=== PATIENT | female | born 1980 | race Caucasian/White ===

== ENCOUNTER → 2016-10-21 | Outpatient (CLI) | payer BC | LOC: RAD 11:02 | DX: R07.89 Other chest pain (principal); R06.00 Dyspnea, unspecified ==

== ENCOUNTER → 2016-10-22 | Outpatient (CLI) | payer BC | LOC: RAD 08:45 | DX: R07.89 Other chest pain (principal); R06.02 Shortness of breath ==

== ENCOUNTER → 2017-01-06 | Outpatient (CLI) | payer BC | LOC: LAB 10:35 | DX: E03.4 Atrophy of thyroid (acquired) (principal) ==

== ENCOUNTER → 2017-03-17 | Outpatient (CLI) | payer BC | LOC: LAB 14:17 | DX: E03.4 Atrophy of thyroid (acquired) (principal) ==

== ENCOUNTER → 2017-06-15 | Outpatient (CLI) | payer BC | LOC: LAB 12:01 | DX: Z32.00 Encounter for pregnancy test, result unknown (principal) ==

== ENCOUNTER 2019-03-18 11:57 | Emergency (ER) | payer BC ==
[2019-03-18] MEDS ORDERED: TIROSINT137 MC1 PO (12:07)
[2019-03-18 13:10] LABS: EOS # 0.1 (0.04-0.40); EOS % 1.3 % (1.0-5.0); HEMATOCRIT 37.5 % (37.0-47.0); HEMOGLOBIN 12.9 g/dL (12.5-16.0); MEAN CELL VOLUME 81 fl (78-100); MEAN CORPUSCULAR HEMOGLOBIN 28 pg (27-31); MEAN CORPUSCULAR HGB CONC 34 g/dL (33-37); MEAN PLATELET VOLUME 9.2 fl (7.4-10.4); MONO # 0.3 (0.20-0.80); NEU # 3.1 (1.40-6.50); PLATELET COUNT 261 K/mm3 (130-400); RED BLOOD COUNT 4.65 M/mm3 (4.10-5.30); RED CELL DISTRIBUTION WIDTH 13.4 % (11.5-14.5); WHITE BLOOD COUNT 5.6 K/mm3 (4.8-10.8)
[2019-03-18 13:18] LABS: ALBUMIN 4.7 g/dL (3.5-5.0); POTASSIUM 3.6 mmol/L (3.5-5.1)
[2019-03-18 13:20] LABS: CALCIUM 9.6 mg/dL (8.3-10.5)
[2019-03-18 13:21] LABS: TOTAL PROTEIN 7.8 g/dL (6.4-8.3)
[2019-03-18 13:33] LABS: D-DIMER 0.22 mg/L FEU (0.15-0.50)
[2019-03-18 13:45] LABS: TOTAL BILIRUBIN 0.5 mg/dL (0.2-1.2)
[2019-03-18 14:18] LABS: URINE APPEARANCE CLEAR; URINE COLOR LT YELLOW
[2019-03-18 14:23] LABS: PH-URINE 7.5 (5.0 - 8.0); URINE BILIRUBIN NEGATIVE (NEGATIVE); URINE BLOOD NEGATIVE (NEGATIVE); URINE GLUCOSE NEGATIVE (NEGATIVE); URINE KETONE NEGATIVE (NEGATIVE); URINE LEUKOCYTE ESTERASE NEGATIVE (NEGATIVE); URINE NITRATE NEGATIVE (NEGATIVE); URINE PROTEIN(semi-quant) NEGATIVE (NEGATIVE); URINE UROBILINOGEN NORMAL (NORMAL); URINE WBC 0-1 /hpf (0-3)
[2019-03-18 15:41] VITALS: BP 119/63
== END 2019-03-18 15:43 | disposition home or self-care (01) ==
LOC: ED 11:57
PROVIDERS: Family Medicine
DX: F41.9 Anxiety disorder, unspecified (principal); M79.601 Pain in right arm; E03.9 Hypothyroidism, unspecified; Z90.49 Acquired absence of other specified parts of digestive tract

== ENCOUNTER → 2020-03-08 | Outpatient (CLI) | payer MEDICAID ==
[~2020-03-08] MED LIST: TIROSINT137 MC1 PO
== END ==
LOC: LAB 14:28
DX: J02.9 Acute pharyngitis, unspecified (principal); R51 Headache; R53.83 Other fatigue; R09.89 Other specified symptoms and signs involving the circulatory and respiratory systems; Z20.828 Contact with and (suspected) exposure to other viral communicable diseases

== ENCOUNTER → 2020-06-27 | Outpatient (CLI) | payer MEDICAID ==
[2020-06-27 16:25] LABS: EOS # 0.1 (0.04-0.40); EOS % 0.7 % (1.0-5.0); HEMATOCRIT 32.4 % (37.0-47.0); HEMOGLOBIN 10.9 g/dL (12.5-16.0); LYMPH# 1.4 (1.50-4.00); MEAN CELL VOLUME 85 fl (78-100); MEAN CORPUSCULAR HEMOGLOBIN 29 pg (27-31); MEAN CORPUSCULAR HGB CONC 34 g/dL (33-37); MONO # 0.6 (0.20-0.80); NEU # 4.8 (1.40-6.50); PLATELET COUNT 219 K/mm3 (130-400); RED BLOOD COUNT 3.82 M/mm3 (4.10-5.30); RED CELL DISTRIBUTION WIDTH 13.6 % (11.5-14.5); WHITE BLOOD COUNT 6.9 K/mm3 (4.8-10.8)
[2020-06-27 16:34] LABS: ALBUMIN 3.6 g/dL (3.5-5.0); POTASSIUM 3.5 mmol/L (3.5-5.1)
[2020-06-27 16:35] LABS: CALCIUM 8.4 mg/dL (8.3-10.5)
[2020-06-27 16:37] LABS: TOTAL PROTEIN 6.2 g/dL (6.4-8.3)
[2020-06-27 16:38] LABS: TOTAL BILIRUBIN 0.2 mg/dL (0.2-1.2)
== END ==
LOC: LAB 15:58
PROVIDERS: Physician Assistant
DX: R60.0 Localized edema (principal); E03.9 Hypothyroidism, unspecified; D64.9 Anemia, unspecified; R00.2 Palpitations; R00.0 Tachycardia, unspecified; R06.00 Dyspnea, unspecified; R73.09 Other abnormal glucose

== ENCOUNTER → 2020-10-31 | Outpatient (CLI) | payer MEDICAID | LOC: RAD 15:22 | DX: S99.921A Unspecified injury of right foot, initial encounter (principal) ==

== ENCOUNTER → 2020-11-13 | Outpatient (CLI) | payer MEDICAID ==
[2020-11-13 17:29] LABS: ALBUMIN 4.4 g/dL (3.5-5.0)
[2020-11-13 17:30] LABS: CALCIUM 9.3 mg/dL (8.3-10.5)
[2020-11-13 17:31] LABS: HEMOGLOBIN 11.5 g/dL (12.5-16.0); RED BLOOD COUNT 4.16 M/mm3 (4.10-5.30); TOTAL PROTEIN 7.5 g/dL (6.4-8.3); WHITE BLOOD COUNT 4.1 K/mm3 (4.8-10.8)
[2020-11-13 17:32] LABS: EOS # 0.1 (0.04-0.40); EOS % 1.5 % (1.0-5.0); HEMATOCRIT 33.9 % (37.0-47.0); LYMPH# 2.1 (1.50-4.00); MEAN CELL VOLUME 82 fl (78-100); MEAN CORPUSCULAR HEMOGLOBIN 28 pg (27-31); MEAN CORPUSCULAR HGB CONC 34 g/dL (33-37); MEAN PLATELET VOLUME 8.9 fl (7.4-10.4); MONO # 0.3 (0.20-0.80); NEU # 1.6 (1.40-6.50); PLATELET COUNT 198 K/mm3 (130-400); RED CELL DISTRIBUTION WIDTH 12.2 % (11.5-14.5)
[2020-11-13 17:33] LABS: TOTAL BILIRUBIN 0.3 mg/dL (0.2-1.2)
[2020-11-15 10:43] LABS: ANA SCREEN with REFLEX Positive (Negative)
== END ==
LOC: LAB 17:05
PROVIDERS: Physician Assistant
DX: R60.0 Localized edema (principal); R21 Rash and other nonspecific skin eruption; R50.81 Fever presenting with conditions classified elsewhere

== ENCOUNTER → 2020-11-28 | Outpatient (CLI) | payer MEDICAID | LOC: LAB 17:31 | DX: R76.8 Other specified abnormal immunological findings in serum (principal) ==

== ENCOUNTER → 2020-12-10 | Outpatient (CLI) | payer MEDICAID | LOC: LAB 10:13 | DX: D68.61 Antiphospholipid syndrome (principal); I82.441 Acute embolism and thrombosis of right tibial vein ==

== ENCOUNTER → 2021-02-14 | Outpatient (CLI) | payer MEDICAID ==
[2021-02-14 17:08] LABS: PROTHROMBIN TIME 9.9 SECONDS (9.0-12.0)
== END ==
LOC: LAB 14:18
PROVIDERS: Physician Assistant
DX: I82.409 Acute embolism and thrombosis of unspecified deep veins of unspecified lower extremity (principal)

== ENCOUNTER → 2021-02-17 | Outpatient (CLI) | payer MEDICAID ==
[2021-02-17 15:08] LABS: BASO # 0.02 (0.02-0.10); EOS # 0.06 (0.04-0.40); EOS % 0.9 % (1.0-5.0); HEMATOCRIT 40.1 % (37.0-47.0); HEMOGLOBIN 13.9 g/dL (12.5-16.0); LYMPH# 2.19 (1.50-4.00); MEAN CELL VOLUME 80 fl (78-100); MEAN CORPUSCULAR HEMOGLOBIN 28 pg (27-31); MEAN CORPUSCULAR HGB CONC 35 g/dL (33-37); MEAN PLATELET VOLUME 8.9 fl (7.4-10.4); MONO # 0.51 (0.20-0.80); NEU # 4.02 (1.40-6.50); PLATELET COUNT 256 K/mm3 (130-400); RED BLOOD COUNT 5.02 M/mm3 (4.10-5.30); RED CELL DISTRIBUTION WIDTH 12.5 % (11.5-14.5); WHITE BLOOD COUNT 6.8 K/mm3 (4.8-10.8)
[2021-02-17 15:25] LABS: ALBUMIN 5.1 g/dL (3.5-5.0); POTASSIUM 4.1 mmol/L (3.5-5.1)
[2021-02-17 15:26] LABS: CALCIUM 9.6 mg/dL (8.3-10.5)
[2021-02-17 15:27] LABS: TOTAL PROTEIN 8.4 g/dL (6.4-8.3)
[2021-02-17 15:29] LABS: TOTAL BILIRUBIN 0.6 mg/dL (0.2-1.2)
== END ==
LOC: LAB 14:57
PROVIDERS: Nurse Practitioner
DX: M25.571 Pain in right ankle and joints of right foot (principal)

== ENCOUNTER → 2021-02-24 | Outpatient (CLI) | payer MEDICAID ==
[2021-02-24 11:51] LABS: PROTHROMBIN TIME 10.3 SECONDS (9.0-12.0)
== END ==
LOC: LAB 11:18
PROVIDERS: Physician Assistant
DX: I82.409 Acute embolism and thrombosis of unspecified deep veins of unspecified lower extremity (principal)

== ENCOUNTER → 2021-03-03 | Outpatient (CLI) | payer MEDICAID | LOC: LAB 08:18 | PROVIDERS: Physician Assistant | DX: I82.409 Acute embolism and thrombosis of unspecified deep veins of unspecified lower extremity (principal) ==

== ENCOUNTER → 2021-03-10 | Outpatient (CLI) | payer MEDICAID ==
[2021-03-10 15:01] LABS: PROTHROMBIN TIME 10.3 SECONDS (9.0-12.0)
== END ==
LOC: LAB 14:33
PROVIDERS: Physician Assistant
DX: I82.409 Acute embolism and thrombosis of unspecified deep veins of unspecified lower extremity (principal)

== ENCOUNTER → 2021-03-19 | Outpatient (CLI) | payer MEDICAID ==
[2021-03-19 08:53] LABS: PROTHROMBIN TIME 13.8 SECONDS (9.0-12.0)
== END ==
LOC: LAB 08:06
PROVIDERS: Physician Assistant
DX: D68.61 Antiphospholipid syndrome (principal); I82.409 Acute embolism and thrombosis of unspecified deep veins of unspecified lower extremity

== ENCOUNTER → 2021-03-21 | Outpatient (CLI) | payer MEDICAID ==
[2021-03-21 15:41] LABS: PROTHROMBIN TIME 17.7 SECONDS (9.0-12.0)
== END ==
LOC: LAB 15:03
PROVIDERS: Physician Assistant
DX: D68.61 Antiphospholipid syndrome (principal)

== ENCOUNTER → 2021-03-25 | Outpatient (CLI) | payer MEDICAID ==
[2021-03-25 14:16] LABS: PROTHROMBIN TIME 18.1 SECONDS (9.0-12.0)
== END ==
LOC: LAB 13:53
PROVIDERS: Physician Assistant
DX: D68.61 Antiphospholipid syndrome (principal)

== ENCOUNTER → 2021-03-29 | Outpatient (CLI) | payer MEDICAID ==
[2021-03-29 11:04] LABS: PROTHROMBIN TIME 21.9 SECONDS (9.0-12.0)
== END ==
LOC: LAB 09:27
PROVIDERS: Physician Assistant
DX: D68.61 Antiphospholipid syndrome (principal)

== ENCOUNTER → 2021-04-07 | Outpatient (CLI) | payer MEDICAID ==
[2021-04-07 17:36] LABS: PROTHROMBIN TIME 44.5 SECONDS (9.0-12.0)
== END ==
LOC: LAB 16:30
PROVIDERS: Physician Assistant
DX: D68.61 Antiphospholipid syndrome (principal)

== ENCOUNTER → 2021-04-14 | Outpatient (CLI) | payer MEDICAID ==
[2021-04-14 18:09] LABS: PROTHROMBIN TIME 21.3 SECONDS (9.0-12.0)
== END ==
LOC: LAB 17:44
PROVIDERS: Physician Assistant
DX: D68.61 Antiphospholipid syndrome (principal)

== ENCOUNTER → 2021-04-29 | Outpatient (CLI) | payer MEDICAID ==
[2021-04-29 12:44] LABS: PROTHROMBIN TIME 21.4 SECONDS (9.0-12.0)
== END ==
LOC: LAB 12:05
PROVIDERS: Physician Assistant
DX: D68.61 Antiphospholipid syndrome (principal)

== ENCOUNTER → 2021-06-02 | Outpatient (CLI) | payer MEDICAID ==
[2021-06-02 11:02] LABS: PROTHROMBIN TIME 34.5 SECONDS (9.0-12.0)
== END ==
LOC: LAB 10:22
PROVIDERS: Physician Assistant
DX: D68.61 Antiphospholipid syndrome (principal)

== ENCOUNTER → 2021-07-09 | Outpatient (CLI) | payer MEDICAID ==
[2021-07-09 12:25] LABS: URINE WBC 0 /hpf (0-3)
[2021-07-09 12:27] LABS: BASO # 0.02 K/mm3 (0.02-0.10); EOS # 0.08 K/mm3 (0.04-0.40); EOS % 1.6 % (1.0-5.0); HEMATOCRIT 39.7 % (37.0-47.0); HEMOGLOBIN 13.4 g/dL (12.5-16.0); LYMPH# 1.87 K/mm3 (1.50-4.00); MEAN CELL VOLUME 81 fl (78-100); MEAN CORPUSCULAR HEMOGLOBIN 27 pg (27-31); MEAN CORPUSCULAR HGB CONC 34 g/dL (33-37); MONO # 0.36 K/mm3 (0.20-0.80); NEU # 2.78 K/mm3 (1.40-6.50); PLATELET COUNT 236 K/mm3 (130-400); RED BLOOD COUNT 4.89 M/mm3 (4.10-5.30); RED CELL DISTRIBUTION WIDTH 12.8 % (11.5-14.5); WHITE BLOOD COUNT 5.1 K/mm3 (4.8-10.8)
[2021-07-09 12:37] LABS: ALBUMIN 4.7 g/dL (3.5-5.0)
[2021-07-09 12:38] LABS: CALCIUM 9.7 mg/dL (8.3-10.5)
[2021-07-09 12:39] LABS: TOTAL PROTEIN 7.7 g/dL (6.4-8.3)
[2021-07-09 12:41] LABS: TOTAL BILIRUBIN 0.3 mg/dL (0.2-1.2)
[2021-07-09 14:50] LABS: PH-URINE 7.5 (5.0 - 8.0); URINE APPEARANCE CLEAR; URINE COLOR YELLOW; URINE GLUCOSE NEGATIVE (NEGATIVE); URINE PROTEIN(semi-quant) NEGATIVE (NEGATIVE)
[2021-07-09 14:51] LABS: URINE BILIRUBIN NEGATIVE (NEGATIVE); URINE BLOOD NEGATIVE (NEGATIVE); URINE KETONE NEGATIVE (NEGATIVE); URINE LEUKOCYTE ESTERASE NEGATIVE (NEGATIVE); URINE NITRATE NEGATIVE (NEGATIVE); URINE UROBILINOGEN NORMAL (NORMAL)
== END ==
LOC: LAB 11:58 → RAD 11:58
PROVIDERS: Physician Assistant
DX: Z01.818 Encounter for other preprocedural examination (principal); E03.9 Hypothyroidism, unspecified

== ENCOUNTER → 2021-07-21 | Outpatient (CLI) | payer MEDICAID ==
[2021-07-21 14:53] LABS: PROTHROMBIN TIME 10.4 SECONDS (9.0-12.0)
== END ==
LOC: LAB 14:23
PROVIDERS: Physician Assistant
DX: D68.61 Antiphospholipid syndrome (principal)

== ENCOUNTER → 2021-08-15 | Outpatient (CLI) | payer MEDICAID ==
[2021-08-15 11:42] LABS: PROTHROMBIN TIME 22.5 SECONDS (9.0-12.0)
== END ==
LOC: LAB 11:19
PROVIDERS: Physician Assistant
DX: D68.61 Antiphospholipid syndrome (principal)

== ENCOUNTER → 2021-08-25 | Outpatient (CLI) | payer MEDICAID ==
[2021-08-25 10:18] LABS: PROTHROMBIN TIME 21.5 SECONDS (9.0-12.0)
== END ==
LOC: LAB 09:55
PROVIDERS: Physician Assistant
DX: D68.61 Antiphospholipid syndrome (principal)

== ENCOUNTER → 2021-09-17 | Outpatient (CLI) | payer MEDICAID ==
[2021-09-17 13:22] LABS: BASO # 0.02 K/mm3 (0.02-0.10); EOS # 0.08 K/mm3 (0.04-0.40); EOS % 1.3 % (1.0-5.0); HEMATOCRIT 39.8 % (37.0-47.0); HEMOGLOBIN 13.4 g/dL (12.5-16.0); LYMPH# 2.11 K/mm3 (1.50-4.00); MEAN CELL VOLUME 82 fl (78-100); MEAN CORPUSCULAR HEMOGLOBIN 28 pg (27-31); MEAN CORPUSCULAR HGB CONC 34 g/dL (33-37); MEAN PLATELET VOLUME 8.8 fl (7.4-10.4); MONO # 0.51 K/mm3 (0.20-0.80); NEU # 3.25 K/mm3 (1.40-6.50); PLATELET COUNT 259 K/mm3 (130-400); RED BLOOD COUNT 4.86 M/mm3 (4.10-5.30); RED CELL DISTRIBUTION WIDTH 12.9 % (11.5-14.5)
[2021-09-17 13:31] LABS: ALBUMIN 4.8 g/dL (3.5-5.0); POTASSIUM 4.1 mmol/L (3.5-5.1)
[2021-09-17 13:33] LABS: CALCIUM 9.4 mg/dL (8.3-10.5)
[2021-09-17 13:34] LABS: TOTAL PROTEIN 8.5 g/dL (6.4-8.3)
[2021-09-17 13:36] LABS: TOTAL BILIRUBIN 0.4 mg/dL (0.2-1.2)
== END ==
LOC: LAB 13:11
PROVIDERS: Internal Medicine
DX: I82.441 Acute embolism and thrombosis of right tibial vein (principal); D68.61 Antiphospholipid syndrome

== ENCOUNTER → 2021-10-08 | Outpatient (CLI) | payer MEDICAID ==
[2021-10-08 16:37] LABS: PROTHROMBIN TIME 20.9 SECONDS (9.0-12.0)
== END ==
LOC: LAB 15:52
PROVIDERS: Physician Assistant
DX: D68.61 Antiphospholipid syndrome (principal)

== ENCOUNTER → 2022-01-14 | Outpatient (CLI) | payer MEDICAID ==
[2022-01-14 17:16] LABS: PROTHROMBIN TIME 10.4 SECONDS (9.0-12.0)
== END ==
LOC: LAB 16:46
PROVIDERS: Physician Assistant
DX: D68.61 Antiphospholipid syndrome (principal)

== ENCOUNTER → 2022-02-05 | Outpatient (CLI) | payer MEDICAID ==
[2022-02-05 14:45] LABS: PROTHROMBIN TIME 17.2 SECONDS (9.0-12.0)
== END ==
LOC: LAB 14:05
PROVIDERS: Physician Assistant
DX: D68.61 Antiphospholipid syndrome (principal)

== ENCOUNTER → 2022-02-24 | Outpatient (CLI) | payer MEDICAID ==
[2022-02-24 15:27] LABS: PROTHROMBIN TIME 16.6 SECONDS (9.0-12.0)
== END ==
LOC: LAB 14:59
PROVIDERS: Physician Assistant
DX: D68.61 Antiphospholipid syndrome (principal)

== ENCOUNTER → 2022-03-30 | Outpatient (CLI) | payer MEDICAID ==
[2022-03-30 18:18] LABS: BASO # 0.04 K/mm3 (0.02-0.10); EOS # 0.06 K/mm3 (0.04-0.40); EOS % 1.2 % (1.0-5.0); HEMATOCRIT 36.8 % (37.0-47.0); HEMOGLOBIN 12.8 g/dL (12.5-16.0); LYMPH# 1.81 K/mm3 (1.50-4.00); MEAN CELL VOLUME 81 fl (78-100); MEAN CORPUSCULAR HEMOGLOBIN 28 pg (27-31); MEAN CORPUSCULAR HGB CONC 35 g/dL (33-37); MONO # 0.39 K/mm3 (0.20-0.80); NEU # 2.89 K/mm3 (1.40-6.50); PLATELET COUNT 224 K/mm3 (130-400); RED BLOOD COUNT 4.56 M/mm3 (4.10-5.30); RED CELL DISTRIBUTION WIDTH 12.9 % (11.5-14.5); WHITE BLOOD COUNT 5.2 K/mm3 (4.8-10.8)
[2022-03-30 19:05] LABS: PROTHROMBIN TIME 36.3 SECONDS (9.0-12.0)
== END ==
LOC: LAB 18:05
PROVIDERS: Physician Assistant
DX: D68.61 Antiphospholipid syndrome (principal)

== ENCOUNTER → 2022-07-08 | Outpatient (CLI) | payer MEDICAID ==
[2022-07-08 13:55] LABS: PROTHROMBIN TIME 48.5 SECONDS (9.0-12.0)
== END ==
LOC: LAB 13:00
PROVIDERS: Physician Assistant
DX: D69.6 Thrombocytopenia, unspecified (principal)

== ENCOUNTER → 2022-07-23 | Outpatient (CLI) | payer MEDICAID ==
[2022-07-23 12:54] LABS: PROTHROMBIN TIME 22.5 SECONDS (9.0-12.0)
== END ==
LOC: LAB 12:21
PROVIDERS: Physician Assistant
DX: D68.61 Antiphospholipid syndrome (principal)

== ENCOUNTER → 2023-07-08 | Outpatient (CLI) | payer OTHER ==
[~2023-07-08] MED LIST changes: +PLAQUENIL200 MG; +WARFARIN SODIUM6 MG
[2023-07-08 17:02] LABS: PROTHROMBIN TIME 14.9 SECONDS (9.0-12.0)
== END ==
LOC: LAB 16:34
PROVIDERS: Physician Assistant
DX: D68.61 Antiphospholipid syndrome (principal)

== ENCOUNTER → 2023-07-12 | Outpatient (CLI) | payer OTHER | LOC: VAS 15:23 → RAD 15:23 | DX: M79.604 Pain in right leg (principal) ==

== ENCOUNTER → 2023-09-29 | Outpatient (CLI) | payer OTHER ==
[2023-09-29 09:33] LABS: BASO # 0.02 K/mm3 (0.02-0.10); EOS # 0.04 K/mm3 (0.04-0.40); EOS % 0.9 % (1.0-5.0); HEMATOCRIT 39.7 % (37.0-47.0); HEMOGLOBIN 13.7 g/dL (12.5-16.0); MEAN CELL VOLUME 82 fl (78-100); MEAN CORPUSCULAR HEMOGLOBIN 28 pg (27-31); MEAN CORPUSCULAR HGB CONC 35 g/dL (33-37); MEAN PLATELET VOLUME 8.9 fl (7.4-10.4); MONO # 0.36 K/mm3 (0.20-0.80); NEU # 2.37 K/mm3 (1.40-6.50); PLATELET COUNT 233 K/mm3 (130-400); RED BLOOD COUNT 4.83 M/mm3 (4.10-5.30); RED CELL DISTRIBUTION WIDTH 12.7 % (11.5-14.5); WHITE BLOOD COUNT 4.3 K/mm3 (4.8-10.8)
[2023-09-29 09:40] LABS: ALBUMIN 5.1 g/dL (3.5-5.0)
[2023-09-29 09:41] LABS: CALCIUM 9.7 mg/dL (8.3-10.5)
[2023-09-29 09:42] LABS: TOTAL PROTEIN 7.8 g/dL (6.4-8.3)
[2023-09-29 09:44] LABS: TOTAL BILIRUBIN 0.6 mg/dL (0.2-1.2)
[2023-09-29 09:55] LABS: PROTHROMBIN TIME 16.7 SECONDS (9.0-12.0)
== END ==
LOC: LAB 09:15
PROVIDERS: Physician Assistant
DX: D68.61 Antiphospholipid syndrome (principal)

== ENCOUNTER → 2024-05-03 | Outpatient (CLI) | payer OTHER ==
[2024-05-03 13:41] LABS: BASO # 0.02 K/mm3 (0.02-0.10); EOS # 0.04 K/mm3 (0.04-0.40); EOS % 0.9 % (1.0-5.0); HEMATOCRIT 39.8 % (37.0-47.0); HEMOGLOBIN 13.4 g/dL (12.5-16.0); LYMPH# 1.35 K/mm3 (1.50-4.00); MEAN CELL VOLUME 82 fl (78-100); MEAN CORPUSCULAR HEMOGLOBIN 28 pg (27-31); MEAN CORPUSCULAR HGB CONC 34 g/dL (33-37); MEAN PLATELET VOLUME 8.9 fl (7.4-10.4); MONO # 0.52 K/mm3 (0.20-0.80); NEU # 2.53 K/mm3 (1.40-6.50); PLATELET COUNT 191 K/mm3 (130-400); RED BLOOD COUNT 4.85 M/mm3 (4.10-5.30); RED CELL DISTRIBUTION WIDTH 12.8 % (11.5-14.5); WHITE BLOOD COUNT 4.5 K/mm3 (4.8-10.8)
[2024-05-03 13:58] LABS: ALBUMIN 4.9 g/dL (3.5-5.0)
[2024-05-03 13:59] LABS: CALCIUM 9.6 mg/dL (8.3-10.5)
[2024-05-03 14:01] LABS: TOTAL PROTEIN 7.5 g/dL (6.4-8.3)
[2024-05-03 14:02] LABS: TOTAL BILIRUBIN 0.5 mg/dL (0.2-1.2)
== END ==
LOC: LAB 13:25
PROVIDERS: Physician Assistant
DX: Z13.220 Encounter for screening for lipoid disorders (principal); K90.9 Intestinal malabsorption, unspecified

== ENCOUNTER → 2024-10-18 | Outpatient (CLI) | payer OTHER ==
[2024-10-18 11:13] LABS: BASO # 0.02 K/mm3 (0.02-0.10); EOS # 0.08 K/mm3 (0.04-0.40); EOS % 1.6 % (1.0-5.0); HEMATOCRIT 42.1 % (37.0-47.0); HEMOGLOBIN 14.3 g/dL (12.5-16.0); LYMPH# 1.31 K/mm3 (1.50-4.00); MEAN CELL VOLUME 83 fl (78-100); MEAN CORPUSCULAR HEMOGLOBIN 28 pg (27-31); MEAN CORPUSCULAR HGB CONC 34 g/dL (33-37); MEAN PLATELET VOLUME 8.8 fl (7.4-10.4); MONO # 0.39 K/mm3 (0.20-0.80); NEU # 3.09 K/mm3 (1.40-6.50); PLATELET COUNT 224 K/mm3 (130-400); RED BLOOD COUNT 5.09 M/mm3 (4.10-5.30); RED CELL DISTRIBUTION WIDTH 12.7 % (11.5-14.5); WHITE BLOOD COUNT 4.9 K/mm3 (4.8-10.8)
[2024-10-18 11:21] LABS: ALBUMIN 5.4 g/dL (3.5-5.0)
[2024-10-18 11:22] LABS: CALCIUM 10.4 mg/dL (8.3-10.5)
[2024-10-18 11:24] LABS: TOTAL PROTEIN 8.7 g/dL (6.4-8.3)
[2024-10-18 11:25] LABS: TOTAL BILIRUBIN 0.7 mg/dL (0.2-1.2)
[2024-10-19 08:16] LABS: LUTENIZING HORMONE 4.3 mIU/mL (())
== END ==
LOC: LAB 10:57
PROVIDERS: Physician Assistant
DX: Z13.220 Encounter for screening for lipoid disorders (principal); K90.9 Intestinal malabsorption, unspecified; E89.41 Symptomatic postprocedural ovarian failure